=== PATIENT | female | born 1990 | race Two or more races ===

== ENCOUNTER 2019-07-23 08:41 | Emergency (ER) | payer OTHER ==
[~2019-07-23] VITALS: Ht 165.1 cm; Wt 88.9 kg
[2019-07-23] MEDS ORDERED: SYNTHROID88 MCG (08:48)
[2019-07-23] MEDS ORDERED: ZITHROMAX500 MG PO (11:27)
== END 2019-07-23 11:32 | disposition home or self-care (01) ==
LOC: ER 08:41
DX: K52.89 Other specified noninfective gastroenteritis and colitis (principal); B96.0 Mycoplasma pneumoniae [M. pneumoniae] as the cause of diseases classified elsewhere

== ENCOUNTER 2024-08-09 10:11 | Emergency (ER) | payer OTHER ==
[~2024-08-09] VITALS: Ht 157.5 cm; Wt 81.6 kg
[~2024-08-09 10:11] MED LIST: SYNTHROID88 MCG; ZITHROMAX500 MG PO
[2024-08-09] MEDS ORDERED: SYNTHROID125 MCG (10:25)
[2024-08-09 12:09] LABS: HEMATOCRIT 38.4 % (36.0-45.00); HEMOGLOBIN 12.8 g/dL (12.0-15.00); MEAN CELL VOLUME 83.9 fL (80.00-100.00); MEAN CORPUSCULAR HEMOGLOBIN 27.9 pg (27.00-32.0); MEAN CORPUSCULAR HGB CONC 33.3 g/dl (32.0-36.0); PLATELET COUNT 242 K/uL (150-450); RED BLOOD COUNT 4.58 M/uL (4.00-6.00); RED CELL DISTRIBUTION WIDTH 13.4 % (11.5-14.5)
[2024-08-09 14:00] VITALS: BP 118/78; O2SAT 100
== END 2024-08-09 14:02 | disposition home or self-care (01) ==
LOC: ER 10:14
DX: B34.9 Viral infection, unspecified (principal); J00 Acute nasopharyngitis [common cold]; Z20.822 Contact with and (suspected) exposure to COVID-19